=== PATIENT | male | born 1960 | race Caucasian/White ===

== ENCOUNTER 2020-04-22 09:51 | Emergency (ER) | payer OTHER ==
[~2020-04-22] VITALS: Ht 172.7 cm; Wt 83.2 kg
--- NOTE | 2020-04-22 10:11 | NUR ---
Registration comes to room to info patient that she has verified his Work Comp injury BUT the Management of [employer] reported they will not authorize ER as they was a clinic visit or an Urgent Care Clinic. Pt states he is here now. Pt states he had called clinic but details of injury he was advised ER.
--- NOTE | 2020-04-22 10:19 | ED Fall/Injury ---
General Stated Complaint: FALL; RT SHOULDER INJ Source: patient, RN/MD, RN notes reviewed Exam Limitations: no limitations History of Present Illness Date Seen by Provider: Apr 22, 2020 Time Seen by Provider: 10:10 Initial Comments This patient is a 59-year-old male that presents to the emergency department status post a fall while at work one day ago. Patient states he hurt his right shoulder was unable to really move it at all. But progressively has gotten worse with pain and still can't move his arm today. On exam is concerning possible anterior dislocation right shoulder. We'll do medical evaluation treatment is needed. Patient had no loss of consciousness from the fall. Occurred: yesterday Injuries/Pain Location: upper extremity Context: lost balance Loss of Consciousness: no loss of consciousness Associated Symptoms (Fall): Denies Symptoms Allergies and Home Medications Allergies Coded Allergies: Penicillins (Verified Allergy, Unknown, 04/22/20) Patient Home Medication List Home Medication List Reviewed: Yes Review of Systems Review of Systems Constitutional: No no symptoms reported, No see HPI, No chills, No diaphoresis, No dizziness, No fever, No malaise, No weakness, No weight gain, No weight loss, No other Eyes: Denies No Symptoms Reported, Denies See HPI, Denies Blindness, Denies Blurred Vision, Denies Drainage, Denies Decreased Acuity, Denies Foreign Body Sensation, Denies Inflammation, Denies Pain, Denies Photophobia, Denies Previous Injury, Denies Shadows, Denies Tunnel Vision, Denies Vision Changes, Denies Contact Lenses, Denies Glasses, Denies Other Ears, Nose, Mouth, Throat: denies no symptoms reported, denies see HPI, denies ear pain, denies ear discharge, denies nose pain, denies nose discharge, denies epistaxis, denies mouth pain, denies mouth swelling, denies loose teeth, denies throat pain, denies throat swelling Respiratory: No no symptoms reported, No see HPI, No cough, No dyspnea on exertion, No hemoptysis, No orthopnea, No phlegm, No short of breath, No stridor, No wheezing, No other Cardiovascular: No no symptoms reported, No see HPI, No chest pain, No edema, No Hx of Intervention, No palpitations, No syncope, No vascular heart diseas, No other Gastrointestinal: No RUQ, No LUQ, No RLQ, No LLQ, No no symptoms reported, No see HPI, No abdominal pain, No constipation, No diarrhea, No dysphagia, No hematemesis, No heartburn, No jaundice, No loss of appetite, No melena, No n ausea, No vomiting, No other Genitourinary: No no symptoms reported, No see HPI, No decreased output, No d ischarge, No dysuria, No frequency, No hematuria, No hesitancy, No incontinence, No nocturia, No pain, No other Musculoskeletal: No no symptoms reported; see HPI; No back pain, No gout; joint pain; No joint swelling, No muscle pain, No muscle stiffness, No muscle cramps, No muscle twitching, No muscle weakness, No neck pain, No other Skin: No no symptoms reported, No see HPI, No change in color, No change in hair/nails, No dryness, No hx of skin cancer, No lesions, No lumps, No pruritus, No rash, No other All Other Systems Reviewed Negative Unless Noted: Yes Past [place] Hx Patient Social History Recent Foreign Travel: No Contact w/Someone Who Travel: No Physical Exam Vital Signs Capillary Refill : Height, Weight, BMI Height: '" Weight: lbs. oz. kg; BMI Method: General Appearance: WD/WN, no apparent distress HEENT: PERRL/EOMI, normal ENT inspection, TMs normal, pharynx normal Neck: non-tender, full range of motion, supple, normal inspection Cardiovascular: normal peripheral pulses, regular rate, rhythm, no edema, no gallop, no JVD, no murmur Respiratory: chest non-tender, lungs clear, normal breath sounds, no respiratory distress, no accessory muscle use Gastrointestinal: normal bowel sounds, non tender, soft, no organomegaly, no pulsatile mass Extremities: no calf tenderness, normal capillary refill, other (decreased range of motion of the right shoulder with anterior fullness concerning for dis location.) Skin: normal color, warm/dry Progress/Results/Core Measures Results/Orders Lab Results Laboratory Tests Test 04/22/20 10:20 Range/Units White Blood Count 9.8 4.3-11.0 10^3/uL Red Blood Count 4.32 L 4.35-5.85 10^6/uL Hemoglobin 15.3 13.3-17.7 G/DL Hematocrit 43 40-54 % Mean Corpuscular Volume 101 H 80-99 FL Mean Corpuscular Hemoglobin 35 H 25-34 PG Mean Corpuscular Hemoglobin Concent 35 32-36 G/DL Red Cell Distribution Width 13.2 10.0-14.5 % Platelet Count 201 130-400 10^3/uL Mean Platelet Volume 11.2 H 7.4-10.4 FL Immature Granulocyte % (Auto) 0 % Neutrophils (%) (Auto) 60 42-75 % Lymphocytes (%) (Auto) 30 12-44 % Monocytes (%) (Auto) 8 0-12 % Eosinophils (%) (Auto) 2 0-10 % Basophils (%) (Auto) 0 0-10 % Neutrophils # (Auto) 5.9 1.8-7.8 X 10^3 Lymphocytes # (Auto) 2.9 1.0-4.0 X 10^3 Monocytes # (Auto) 0.8 0.0-1.0 X 10^3 Eosinophils # (Auto) 0.2 0.0-0.3 10^3/uL Basophils # (Auto) 0.0 0.0-0.1 10^3/uL Immature Granulocyte # (Auto) 0.0 0.0-0.1 10^3/uL My Orders Orders - CHRISTY MARQUEZ MD Ed Iv/Invasive Line Start (04/22/20 10:15) Shoulder 3 View Right (04/22/20 10:15) Cbc With Automated Diff (04/22/20 10:15) Comprehensive Metabolic Panel (04/22/20 10:15) Morphine Injection (Morphine Injection (04/22/20 10:21) Ondansetron Injection (Zofran Injectio (04/22/20 10:30) Medications Given in ED Current Medications Medications Dose Ordered Sig/Adán Route Start Time Stop Time Status Last Admin Dose Admin Ondansetron HCl 4 mg ONCE ONCE IVP 04/22/20 10:30 04/22/20 10:31 DC 04/22/20 10:39 4 MG Progress Progress Note : Time: 10:45 Progress Note Negative x-rays negative for any acute injuries of the right shoulder. However it could be related to some type of rotator cuff injury. His recommended the patient probably need outpatient MRI in a few days. Patient's instructed to follow-up with his workman comp clinic. May need to be referred over to orthopedics as scheduled for an outpatient MRI. Patient is take medications as instructed. Use ice packs as instructed. Patient's [place] we placed in a sling. Departure Impression Primary Impression: Fall Additional Impression: Injury of right shoulder Disposition: HOME, SELF-CARE Condition: Stable Departure-Patient Inst. Decision time for Depature: 10:46 Referrals: NO,LOCAL PHYSICIAN (PCP) Primary Care Physician Patient Instructions: Rotator Cuff Injury (DC) Add. Discharge Instructions: Patient's instructed to follow-up with his [employer] comp clinic. May need to be referred over to orthopedics as scheduled for an outpatient MRI. Patient is take medications as instructed. Use ice packs as instructed. Patient's [place] we placed in a sling. Scripts Diclofenac Sodium (Diclofenac Sodium) 75 Mg Tablet. 75 MG PO BID for 10 Days, #20 TAB 0 Refills Prov: CHRISTY MARQUEZ MD 04/22/20 CHRISTY MARQUEZ MD Apr 22, 2020 10:19
[2020-04-22] MEDS ORDERED: morphine INJ 10 MG/ML 1ML (SYR OR VIAL) IVP STA (10:21)
[2020-04-22] MEDS ORDERED: ONDANSETRON 4 MG/2 ML (SDV) Z0FRAN IVP ONE (10:30)
--- NOTE | 2020-04-22 10:34 | Diagnostic Imaging Report ---
CLINICAL INDICATION: Patient is status post fall from 10' ladder yesterday. Patient has pain in the right shoulder. EXAM: X-ray of the right shoulder, 3 views including the scapular Y view. COMPARISON: None. FINDINGS: There is no acute fracture or dislocation. There are mildly hypertrophic spurs involving the right acromioclavicular interval. There is minimal spurring of the inferior right glenoid rim. 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 Dictated by: Dictated on workstation # [id number]
[2020-04-22 10:37] LABS: BASOPHILS % (AUTO) 0 % (0-10); EOSINOPHILS # (AUTO) 0.2 10^3/uL (0.0-0.3); EOSINOPHILS % (AUTO) 2 % (0-10); HEMATOCRIT 43 % (40-54); HEMOGLOBIN 15.3 G/DL (13.3-17.7); LYMPHOCYTES # (AUTO) 2.9 X 10^3 (1.0-4.0); LYMPHOCYTES % (AUTO) 30 % (12-44); MEAN CORPUSCULAR HEMOGLOBIN 35 PG (25-34); MEAN CORPUSCULAR HGB CONC 35 G/DL (32-36); MEAN CORPUSCULAR VOLUME 101 FL (80-99); MEAN PLATELET VOLUME 11.2 FL (7.4-10.4); MONOCYTES # (AUTO) 0.8 X 10^3 (0.0-1.0); MONOCYTES % (AUTO) 8 % (0-12); NEUTROPHILS # (AUTO) 5.9 X 10^3 (1.8-7.8); NEUTROPHILS % (AUTO) 60 % (42-75); PLATELET COUNT 201 10^3/uL (130-400); WHITE BLOOD COUNT 9.8 10^3/uL (4.3-11.0)
[2020-04-22] MEDS ORDERED: DICL75TA2 PO (10:47)
[2020-04-22 10:55] LABS: BUN/CREATININE RATIO 14; CARBON DIOXIDE 20 MMOL/L (21-32); CHLORIDE 103 MMOL/L (98-107); CREATININE SERUM 0.97 MG/DL (0.60-1.30); GFR ESTIMATED > 60; POTASSIUM 3.6 MMOL/L (3.6-5.0); SODIUM 139 MMOL/L (135-145)
[2020-04-22 10:56] LABS: ALANINE AMINOTRANSFERASE 20 U/L (0-55); ALBUMIN 4.5 GM/DL (3.2-4.5); ALKALINE PHOSPHATASE 67 U/L (40-136); CALCIUM 9.5 MG/DL (8.5-10.1); GLUCOSE 123 MG/DL (70-105); TOTAL PROTEIN 7.3 GM/DL (6.4-8.2)
[2020-04-22 11:00] VITALS: BP 121/81
--- NOTE | 2020-04-22 11:00 | NUR ---
Pt was referred discharge instructions and the type of restrictions placed on a Work Comp patient for his line of work. Pt was advised need to see retail sales specialist for probable Rotator Cuff Injury and need of MRI. Pt is to try revealing the injuries with employer to see if they have a Work Comp Dr or preference. Pt has restrictions on work duties. Pt placed in a large sling to R arm.
[2020-04-22] MEDS ORDERED: LISI1TAB26 (18:49)
[2020-04-22] MEDS ORDERED: METF-397 (18:49)
[2020-04-22] MEDS ORDERED: TRAZODONE (18:49)
[2020-04-22] MEDS ORDERED: VENL150C98 (18:49)
[2020-04-22] MEDS ORDERED: CLON0.5T4 (18:49)
[2020-04-22] MEDS ORDERED: MIRT15TA6 (18:49)
== END 2020-04-22 11:00 | disposition home or self-care (01) ==
LOC: ER FS 09:54
DX: S49.91XA Unspecified injury of right shoulder and upper arm, initial encounter (principal); Z88.0 Allergy status to penicillin; W19.XXXA Unspecified fall, initial encounter
CPT/HCPCS: 36415; 73030; 80053; 85025; 99284; A4565

== ENCOUNTER → 2020-05-09 | Outpatient (CLI) | payer OTHER ==
[~2020-05-09] MED LIST: CLON0.5T4; DICL75TA2 PO; LISI1TAB26; METF-397; MIRT15TA6; TRAZODONE; VENL150C98
--- NOTE | 2020-05-09 10:44 | Diagnostic Imaging Report ---
EXAMINATION: Magnetic resonance imaging of the right shoulder without contrast. DATE: May 09, 2020. COMPARISON: Right shoulder radiographs April 22, 2020. HISTORY: 59-year-old male, fall from roof on April 21, 2020. Right shoulder injury. Right shoulder pain. TECHNIQUE: Magnetic Resonance Imaging sequences were performed of the shoulder without contrast. FINDINGS: ROTATOR CUFF, LIGAMENTS, TENDONS, AND MUSCLES: There are full thickness full width tears of the supraspinatus and infraspinatus tendons. There is tendon retraction to near the level of the glenoid. The teres minor tendon is intact. There is an interstitial split tear of the subscapularis tendon. There is no current fatty muscle atrophy. There is very low level signal in the supraspinatus and infraspinatus muscles which may relate to a low-grade muscle strains and/or early denervation related signal changes. LONG HEAD OF BICEPS: The proximal long head of biceps tendon is normally positioned within the bicipital groove and is intact. GLENOHUMERAL JOINT: The humeral head is posteriorly subluxed and is superiorly subluxed. The humeral head does contact the posterior glenoid on axial image 15. The labrum is grossly intact. There is no identified paralabral cyst. The articular cartilage is grossly intact. There is a small glenohumeral joint effusion. ACROMIOCLAVICULAR JOINT: The acromioclavicular joint is normally aligned. The coracoclavicular and coracoacromial ligaments are intact. There are mild acromioclavicular degenerative changes with 1 to 2 mm undersurface osteophytes. BONE: There is no os acromiale. There is degenerative related marrow edema adjacent to the acromioclavicular joint. There is no Hill-Sachs deformity. There is no acute fracture, bone contusion, or evidence of osteonecrosis. BURSAE AND SOFT TISSUES: There is a small amount of fluid in the subacromial subdeltoid bursa. IMPRESSION: 1. Full thickness full width tears of the supraspinatus and infraspinatus tendons with tendon retraction near the level of the glenoid. Interstitial split tear of the subscapularis tendon. 2. Normally positioned and intact proximal long head of biceps tendon. 3. Mild acromioclavicular degenerative changes with 1 to 2 mm undersurface osteophytes. 4. The humeral head is posteriorly and superiorly subluxed. The humeral head does contact the posterior glenoid. There is a small glenohumeral joint effusion. Grossly intact labrum and articular cartilage. 5. No acute fracture or bone contusion. Dictated by: Dictated on workstation # [id number]
== END ==
LOC: RAD 09:02
PROVIDERS: ATTEND Orthopaedic Surgery
DX: M75.121 Complete rotator cuff tear or rupture of right shoulder, not specified as traumatic (principal); M19.011 Primary osteoarthritis, right shoulder
CPT/HCPCS: 73221

== ENCOUNTER → 2020-12-06 | Outpatient (CLI) | payer OTHER ==
[2020-12-06 11:22] LABS: HEMATOCRIT 42 % (40-54); MEAN CORPUSCULAR HEMOGLOBIN 37 pg (25-34); MEAN CORPUSCULAR HGB CONC 36 g/dL (32-36); MEAN CORPUSCULAR VOLUME 104 fL (80-99); MEAN PLATELET VOLUME 11.1 fL (9.0-12.2); PLATELET COUNT 220 10^3/uL (130-400)
[2020-12-06 11:32] LABS: CHLORIDE 107 MMOL/L (98-107); POTASSIUM 3.5 MMOL/L (3.6-5.0); SODIUM 140 MMOL/L (135-145)
[2020-12-06 11:35] LABS: GLUCOSE 164 MG/DL (70-105); TOTAL PROTEIN 7.1 GM/DL (6.4-8.2)
[2020-12-06 11:36] LABS: CARBON DIOXIDE 22 MMOL/L (21-32)
[2020-12-06 11:37] LABS: BILIRUBIN,TOTAL 0.4 MG/DL (0.1-1.0)
[2020-12-06 11:38] LABS: ALKALINE PHOSPHATASE 76 U/L (40-136); CREATININE SERUM 1.14 MG/DL (0.60-1.30); GFR ESTIMATED > 60
[2020-12-06 11:40] LABS: BUN/CREATININE RATIO 12
[2020-12-06 11:41] LABS: ALANINE AMINOTRANSFERASE 30 U/L (0-55)
== END ==
LOC: CARD 11:00
PROVIDERS: ATTEND Orthopaedic Surgery
DX: Z01.812 Encounter for preprocedural laboratory examination (principal); Z01.810 Encounter for preprocedural cardiovascular examination
CPT/HCPCS: 36415; 80053; 85027; 93005